=== PATIENT | female | born 1975 | race Caucasian/White ===

== ENCOUNTER 2017-12-10 08:37 | Emergency (ER) | payer BC, OTHER ==
[~2017-12-10] VITALS: Ht 172.7 cm; Wt 75.2 kg
[~2017-12-10 08:37] MED LIST: MTR600X PO; PRENTAB26 PO
[2017-12-10 08:49] VITALS: TEMP 36.8; Ht 172.7 cm; Wt 75.2 kg
[2017-12-10 08:51] VITALS: O2SAT 100
[2017-12-10] MEDS ORDERED: SODIUM CHLORIDE 0.9% 1000ML 1,000 ML IV STA (09:18)
--- NOTE | 2017-12-10 09:21 | EMERGENCY ROOM VISIT NOTE ---
History Report prepared by Tarsha: Edilia Carvajal Under the Supervision of: Dr. Cole Javier M.D. First contact with patient: 08:40 Chief Complaint: CHEST PAIN Stated Complaint: CHEST PAIN, PASSED OUT THIS MORNING. History of Present Illness The patient is a 42 year old female who presents to the Emergency Room with complaints of a resolved chest pain episode that began last night. The patient reports that her chest pain episode lasted about 10-15 minutes and then she was able to fall asleep. She reports that her pain radiated to her breast, back, and her back. She notes that this morning she noticed her right hand and several fingers became numb and had some pain. The patient states that she fainted in the shower today prior to arrival, noting that she has a history of fainting. She notes that most of the time she faints it is related to her experiencing pain or being in medical facilities. The patient states that she currently takes control pills and denies any chances of her being . She denies any history of being a smoker. Source of History: patient Position: chest Quality: other (chest pain) Timing: other (persistent) Review of Systems See HPI for pertinent positives & negatives. A total of 10 systems reviewed and were otherwise negative. Past Medical & Surgical Medical Problems: (1) No Known Active Medical Problems Family History Blood clots FH: hypertension Social History Smoking Status: Unknown if Ever Smoked Smokeless Tobacco Use: Unknown Alcohol Use: none Drug Use: none Marital Status: Housing Status: lives with significant other Occupation Status: employed Current/Historical Medications Scheduled Control Pills ( Control Pills), 1 TAB PO HS Allergies Coded Allergies: No Known Allergies (Unverified , 12/10/17) Physical Exam Vital Signs Date Time Temp Pulse Resp B/P (MAP) Pulse Ox O2 Delivery O2 Flow Rate FiO2 12/10/17 10:46 57 18 107/62 99 Room Air 12/10/17 10:22 72 20 130/70 99 Room Air 12/10/17 09:34 62 18 103/63 98 Room Air 12/10/17 08:54 49 12/10/17 08:52 49 18 96/56 100 Room Air 12/10/17 08:51 100 Room Air 12/10/17 08:49 36.8 41 20 66/34 98 Room Air Physical Exam GENERAL: Patient is a healthy-appearing well-nourished female. HEAD: Normocephalic atraumatic EYES: Ocular movements intact pupils equal and react to light OROPHARYNX mucous membranes are moist no exudates present no erythema or edema present NECK: Supple no nuchal rigidity CHEST: Good equal expansion LUNGS: Clear and equal to auscultation CARDIAC: Normal S1 and S2 ABDOMEN: Soft nontender no guarding BACK: No CVA tenderness EXTREMITIES: No pain upon palpation normal muscle strength in all groups no clubbing cyanosis or edema NEURO: Patient is following commands and answering questions appropriately. Alert and oriented x3 Cranial Nerves 2-12 grossly intact Medical Decision & Procedures ER Provider Diagnostic Interpretation: Radiology results as stated below per my review and radiologist interpretation: CHEST ONE VIEW PORTABLE CLINICAL HISTORY: CHEST PAIN dyspnea COMPARISON STUDY: No previous studies for comparison. FINDINGS: The bones soft tissues and hemidiaphragms are normal. The cardiomediastinal silhouette is normal. The lungs are clear. The pulmonary vasculature is normal. IMPRESSION: Negative chest. The above report was generated using voice recognition software. It may contain grammatical, syntax or spelling errors. Electronically signed by: Jakub Leon M.D. 12/10/2017 9:42 AM Dictated Date/Time: 12/10/2017 9:42 AM (CHEST FOR PE) ANGIO WITH CT DOSE: 279.70 mGy.cm HISTORY: 42 years-old Female presents with acute atypical right-sided chest pain TECHNIQUE: Multiple CTA images of the chest were obtained after the intravenous administration of 89 ml Optiray 320. Coronal and sagittal MIPS were obtained from the axial data set and were submitted for review. A dose lowering technique was utilized adhering to the principles of ALARA. COMPARISON: Chest radiograph of same day. FINDINGS: CTA: Heart is normal in size without pericardial effusion. Thoracic aorta is normal in both course and caliber without aneurysm or dissection. The imaged great vessels appear patent. Mild reflux of contrast is noted into the IVC. The pulmonary arterial tree is opacified to level of the subsegmental branches and demonstrates no focal filling defects to suggest pulmonary thromboembolic disease. CT CHEST: No dominant thyroid nodule or pathologic adenopathy identified. Minimal ill-defined soft tissue attenuation of the anterior mediastinum suggests some residual thymic tissue. There is mild bibasilar groundglass opacities suggesting atelectasis. There is no pneumothorax, pleural effusion, focal airspace consolidation or evidence to suggest overt pulmonary edema. The central airways appear to be patent. No acute amount the of the imaged upper abdomen. Soft tissues and breast parenchyma appear unremarkable. Bones appear intact. IMPRESSION: 1. No acute intrathoracic abnormality identified, specifically no acute aortic pathology or evidence of pulmonary thromboembolic disease. 2. No focal airspace consolidation. 3. No pathologic adenopathy. The above report was generated using voice recognition software. It may contain grammatical, syntax or spelling errors. Electronically signed by: Jesus Caban M.D. 12/10/2017 10:28 AM Dictated Date/Time: 12/10/2017 10:23 AM Laboratory Results 12/10/17 08:45 Red Blood Count 4.42, Mean Corpuscular Volume 90.0, Mean Corpuscular Hemoglobin 31.2, Mean Corpuscular Hemoglobin Concent 34.7, Mean Platelet Volume 9.6, Neutrophils (%) (Auto) 67.7, Lymphocytes (%) (Auto) 17.7, Monocytes (%) (Auto) 13.0, Eosinophils (%) (Auto) 0.8, Basophils (%) (Auto) 0.6, Neutrophils # (Auto ) 4.43, Lymphocytes # (Auto) 1.16, Monocytes # (Auto) 0.85, Eosinophils # (Auto ) 0.05, Basophils # (Auto) 0.04 12/10/17 08:45 Test 12/10/17 08:45 12/10/17 09:28 White Blood Count 6.54 K/uL (4.8-10.8) Red Blood Count 4.42 M/uL (4.2-5.4) Hemoglobin 13.8 g/dL (12.0-16.0) Hematocrit 39.8 % (37-47) Mean Corpuscular Volume 90.0 fL (80-100) Mean Corpuscular Hemoglobin 31.2 pg (25-34) Mean Corpuscular Hemoglobin Concent 34.7 g/dl (32-36) Platelet Count 286 K/uL (130-400) Mean Platelet Volume 9.6 fL (7.4-10.4) Neutrophils (%) (Auto) 67.7 % Lymphocytes (%) (Auto) 17.7 % Monocytes (%) (Auto) 13.0 % Eosinophils (%) (Auto) 0.8 % Basophils (%) (Auto) 0.6 % Neutrophils # (Auto) 4.43 K/uL (1.4-6.5) Lymphocytes # (Auto) 1.16 K/uL (1.2-3.4) Monocytes # (Auto) 0.85 K/uL (0.11-0.59) Eosinophils # (Auto) 0.05 K/uL (0-0.5) Basophils # (Auto) 0.04 K/uL (0-0.2) RDW Standard Deviation 40.9 fL (36.4-46.3) RDW Coefficient of Variation 12.3 % (11.5-14.5) Immature Granulocyte % (Auto) 0.2 % Immature Granulocyte # (Auto) 0.01 K/uL (0.00-0.02) Anion Gap 9.0 mmol/L (3-11) Est Creatinine Clear Calc Drug Dose 90.9 ml/min Estimated GFR () 102.2 Estimated GFR (Non- 88.2 BUN/Creatinine Ratio 11.3 (10-20) Calcium Level 8.7 mg/dl (8.5-10.1) Total Bilirubin 0.4 mg/dl (0.2-1) Direct Bilirubin 0.1 mg/dl (0-0.2) Aspartate Amino Transf (AST/SGOT) 11 U/L (15-37) Alanine Aminotransferase (ALT/SGPT) 15 U/L (12-78) Alkaline Phosphatase 82 U/L (45-117) Total Creatine Kinase 48 U/L (26-192) Creatine Kinase MB < 0.5 ng/ml (0.5-3.6) Creatine Kinase MB Ratio (0-3.0) Troponin I < 0.015 ng/ml (0-0.045) Total Protein 7.5 gm/dl (6.4-8.2) Albumin 3.6 gm/dl (3.4-5.0) Lipase 96 U/L (73-393) Bedside D-Dimer > 450 ng/mlFEU (0-450) Labs reviewed by ED physician. Medications Administered Medications (Trade) Dose Ordered Sig/Beatriz Route Start Time Stop Time Status Last Admin Dose Admin Sodium Chloride 1,000 ml @ 999 mls/hr Q1H1M STAT IV 12/10/17 09:18 2/16/18 10:18 DC 12/10/17 09:31 999 MLS/HR Potassium Chloride (Kamla Ciel Elix) 40 meq NOW STAT PO 12/10/17 09:36 12/10/17 09:37 DC 12/10/17 09:50 40 MEQ ECG Per My Interpretation Indication: chest pain Rate (beats per minute): 51 Rhythm: sinus bradycardia Findings: other (Short MO, no ST elevation or depression) Change: Patients electrocardiogram as interpreted by me. ED Course 0854: Past medical records reviewed. The patient was evaluated in room B4. A complete history and physical examination was performed. 0918: Ordered Sodium Chloride 1000ml @ 999 mls/hr IV. 0936: Ordered Potassium Chloride 40meq PO. 1000: Ordered Ioversol 100ml IV. 1032: Upon reexamination the patient is resting comfortably. I discussed results and treatment plan with the patient. She verbalizes agreement and understanding. The patient is ready for discharge. Medical Decision Differential diagnosis: Etiologies such as cardiac ischemia, aortic dissection, pulmonary embolism, pneumonia, pneumothorax, musculoskeletal, infections, pericarditis, myocarditis , esophageal rupture, gastrointestinal, as well as others were entertained. This is a 42-year-old female who presents emergency department complaining of numbness and saline to her second and third finger. She feel that the numbness and tingling is due to carpal tunnel syndrome as she is has a positive Tinel sign. The patient however is also concerned about right-sided chest pain. She does have an elevation in her d-dimer however has a normal EKG CK and and be in troponin. CAT scan of the chest does not show any acute process. I do believe that the patient is well enough to be discharged home however I stressed the need for follow-up with cardiology and to return to the emergency department if she develops worsening chest pain. Patient was in agreement with the treatment plan. Medication Reconcilliation Current Medication List: was personally reviewed by me Blood Pressure Screening Patient's blood pressure: Normal blood pressure Blood pressure disposition: Did not require urgent referral Impression Primary Impression: Precordial chest pain Scribe Attestation The scribe's documentation has been prepared under my direction and personally reviewed by me in its entirety. I confirm that the note above accurately reflects all work, treatment, procedures, and medical decision making performed by me. Departure Information Dispostion Home / Self-Care Referrals No Doctor, Assigned (PCP) Forms Call Back Authorization, HOME CARE DOCUMENTATION FORM, IMPORTANT VISIT INFORMATION Patient Instructions My [facility] Additional Instructions Follow up with Dr Fitch's office No strenuous activity until follow up Return if you develop any further chest pain You have been examined and treated today on an emergency basis only. This is not a substitute for, or an effort to provide, complete comprehensive medical care. It is impossible to recognize and treat all injuries or illnesses in a single emergency department visit. It is therefore important that you follow up closely with your PCP. Call as soon as possible for an appointment. Thank you for your time and consideration. I look forward to speaking with you again soon. Please don't hesitate to call us if you have any questions.
[2017-12-10] MEDS ORDERED: BCPILLS PO (09:25)
[2017-12-10 09:26] LABS: BASO % 0.6 %; BASO ABS # 0.04 K/uL (0-0.2); EOS % 0.8 %; EOS ABS # 0.05 K/uL (0-0.5); HEMATOCRIT 39.8 % (37-47); HEMOGLOBIN 13.8 g/dL (12.0-16.0); IG# 0.01 K/uL (0.00-0.02); LYMPH % 17.7 %; LYMPH ABS # 1.16 K/uL (1.2-3.4); MEAN CORPUSCULAR HEMOGLOBIN 31.2 pg (25-34); MEAN CORPUSCULAR HGB CONC 34.7 g/dl (32-36); MEAN PLATELET VOLUME 9.6 fL (7.4-10.4); MONO ABS # 0.85 K/uL (0.11-0.59); NEUT % 67.7 %; NEUT ABS # 4.43 K/uL (1.4-6.5); PLATELET COUNT 286 K/uL (130-400); RED CELL DISTRIBUTION WIDTH CV 12.3 % (11.5-14.5); RED CELL DISTRIBUTION WIDTH SD 40.9 fL (36.4-46.3); WHITE BLOOD COUNT 6.54 K/uL (4.8-10.8)
[2017-12-10 09:34] LABS: ALBUMIN 3.6 gm/dl (3.4-5.0); ALT/SGPT 15 U/L (12-78); BLOOD UREA NITROGEN 9 mg/dl (7-18); CALCIUM 8.7 mg/dl (8.5-10.1); CARBON DIOXIDE 25 mmol/L (21-32); CREATININE 0.83 mg/dl (0.60-1.20); GLUCOSE 87 mg/dl (70-99); LIPASE 96 U/L (73-393); POTASSIUM 3.4 mmol/L (3.5-5.1); SODIUM 139 mmol/L (136-145)
[2017-12-10] MEDS ORDERED: POTASSIUM CHLORIDE 20 MEQ/15 ML UDC PO STA (09:36)
[2017-12-10 09:39] LABS: ALKALINE PHOSPHATASE 82 U/L (45-117); AST/SGOT 11 U/L (15-37); CKMB < 0.5 ng/ml (0.5-3.6); TOTAL PROTEIN 7.5 gm/dl (6.4-8.2)
--- NOTE | 2017-12-10 09:43 | DIAGNOSTIC IMAGING REPORT ---
CHEST ONE VIEW PORTABLE CLINICAL HISTORY: CHEST PAIN dyspnea COMPARISON STUDY: No previous studies for comparison. FINDINGS: The bones soft tissues and hemidiaphragms are normal. The cardiomediastinal silhouette is normal. The lungs are clear. The pulmonary vasculature is normal. IMPRESSION: Negative chest. The above report was generated using voice recognition software. It may contain grammatical, syntax or spelling errors. Electronically signed by: Jakub Leon M.D. 12/10/2017 9:42 AM Dictated Date/Time: 12/10/2017 9:42 AM
[2017-12-10] MEDS ORDERED: OPTIRAY 320 IV PRN (10:00)
--- NOTE | 2017-12-10 10:29 | DIAGNOSTIC IMAGING REPORT ---
(CHEST FOR PE) ANGIO WITH CT DOSE: 279.70 mGy.cm HISTORY: 42 years-old Female presents with acute atypical right-sided chest pain TECHNIQUE: Multiple CTA images of the chest were obtained after the intravenous administration of 89 ml Optiray 320. Coronal and sagittal MIPS were obtained from the axial data set and were submitted for review. A dose lowering technique was utilized adhering to the principles of ALARA. COMPARISON: Chest radiograph of same day. FINDINGS: CTA: Heart is normal in size without pericardial effusion. Thoracic aorta is normal in both course and caliber without aneurysm or dissection. The imaged great vessels appear patent. Mild reflux of contrast is noted into the IVC. The pulmonary arterial tree is opacified to level of the subsegmental branches and demonstrates no focal filling defects to suggest pulmonary thromboembolic disease. CT CHEST: No dominant thyroid nodule or pathologic adenopathy identified. Minimal ill-defined soft tissue attenuation of the anterior mediastinum suggests some residual thymic tissue. There is mild bibasilar groundglass opacities suggesting atelectasis. There is no pneumothorax, pleural effusion, focal airspace consolidation or evidence to suggest overt pulmonary edema. The central airways appear to be patent. No acute amount the of the imaged upper abdomen. Soft tissues and breast parenchyma appear unremarkable. Bones appear intact. IMPRESSION: 1. No acute intrathoracic abnormality identified, specifically no acute aortic pathology or evidence of pulmonary thromboembolic disease. 2. No focal airspace consolidation. 3. No pathologic adenopathy. The above report was generated using voice recognition software. It may contain grammatical, syntax or spelling errors. Electronically signed by: Jesus Caban M.D. 12/10/2017 10:28 AM Dictated Date/Time: 12/10/2017 10:23 AM
[2017-12-10 10:46] VITALS: BP 107/62; PULSE 57; O2SAT 99
== END 2017-12-10 10:53 | disposition home or self-care (01) ==
LOC: C.EDB 08:39
DX: R07.2 Precordial pain (principal); R00.1 Bradycardia, unspecified; R55 Syncope and collapse; Z79.3 Long term (current) use of hormonal contraceptives; Z82.49 Family history of ischemic heart disease and other diseases of the circulatory system; Z83.2 Family history of diseases of the blood and blood-forming organs and certain disorders involving the immune mechanism